=== PATIENT | female | born 1995 | race Caucasian/White ===

== ENCOUNTER 2017-01-26 23:08 | Emergency (ER) | payer OTHER ==
[2017-01-27] MEDS ORDERED: DOXYcycline CAP(*) 100 MG PO ONE (00:53)
[2017-01-27 01:47] VITALS: BP 109/77
--- NOTE | 2017-01-27 02:03 | ED ---
Lower Extremity - HPI Summary HPI Summary: Pt here w/ redness, swelling and drainage from Lt inner thigh. Started as a pink papule - nonpainful and denies trauma (ie. picking at the area, insect bite , etc). Just noticed tonight. Denies fever, chills, N/V/D, joint stiffness or pain w/ movement. H/o similar issue in another location. - History of Current Complaint Chief Complaint: EDRashSkinAbscess Stated Complaint: INFECTION ON LEFT INNER THIGH Time Seen by Provider: 01/27/17 00:24 Hx Obtained From: Patient Hx Last Menstrual Period: 17 November Pain Intensity: 0 Pain Scale Used: 0-10 Numeric - Allergies/Home Medications Allergies/Adverse Reactions: Allergies Allergy/AdvReac Type Severity Reaction Status Date / Time Vancomycin Allergy Rash And Verified 01/26/17 23:22 Itching PMH/Surg Hx/FS Hx/Imm Hx Previously Healthy: Yes Endocrine/Hematology History: Denies: Hx Diabetes, Autoimmune Disease Infectious Disease History: No Infectious Disease History: Reports: Hx Tuberculosis - vaccinated - pos PPD, x- rays are clear Denies: Traveled Outside the [place] in Last 30 Days - Social History Lives: With Family Alcohol Use: Occasionally Hx Substance Use: No Substance Use Type: Reports: None Hx Tobacco Use: No Smoking Status (MU): Never Smoked Tobacco Review of Systems Constitutional: Negative Negative: Chest Pain Negative: Shortness Of Breath Gastrointestinal: Negative Positive: no symptoms reported Musculoskeletal: Negative Skin: Other - see HPI Neurological: Negative Psychological: Normal All Other Systems Reviewed And Are Negative: Yes Physical Exam Triage Information Reviewed: Yes Vital Signs On Initial Exam: Initial Vitals Temp Pulse Resp BP Pulse Ox 99.1 F 92 16 132/75 97 01/26/17 23:15 01/26/17 23:15 01/26/17 23:15 01/26/17 23:15 01/26/17 23:15 Vital Signs Reviewed: Yes Appearance: Positive: Well-Appearing, No Pain Distress, Well-Nourished Skin: Positive: Warm - 5cm area of erythema over Lt inner thigh - central indurated area - no signs FB - scant serosanginous drainage - no pustule, no vesicles - warm to touch Head/Face: Positive: Normal Head/Face Inspection Eyes: Positive: Normal, EOMI ENT: Positive: Hearing grossly normal Respiratory/Lung Sounds: Positive: Breath Sounds Present Cardiovascular: Positive: Normal, Pulses are Symmetrical in both Upper and Lower Extremities. Negative: Leg Edema Left, Leg Edema Right Musculoskeletal: Positive: Normal, Strength/ROM Intact Neurological: Positive: Normal, Sensory/Motor Intact, Alert, Oriented to Person Place, Time Psychiatric: Positive: Normal - Carlito Coma Scale Coma Scale Total: 15 Diagnostics - Vital Signs Vital Signs Temp Pulse Resp BP Pulse Ox 01/27/17 01:45 97.8 F 90 16 109/77 01/27/17 00:15 98.6 F 80 16 131/73 98 01/26/17 23:15 99.1 F 92 16 132/75 97 - Laboratory Lab Statement: Any lab studies that have been ordered have been reviewed, and results considered in the medical decision making process. Lower Extremity Course/Dx - Course Course Of Treatment: Cx taken from site and sent to lab. Started on anbx and advised to f/u w/ PCP. Danger s/sx reviewed. Pt agrees w/ plan. - Diagnoses Provider Diagnoses: Abscess of left thigh, Cellulitis of left thigh Discharge - Discharge Plan Condition: Stable Disposition: HOME Prescriptions: DOXYcycline CAP(*) [DOXYcycline 100MG CAP(*)] 100 mg PO BID #19 cap Patient Education Materials: Cellulitis (ED) Forms: *School Release Referrals: [facility] [Primary Care Provider] - Additional Instructions: Wash daily with soap and water - rinse well and pat dry then redress with clean gauze You may apply warm compress as well as epsom salt compress Complete antibiotics - use alternative form of control (condoms) in addition to oral control as antibiotic can alter the efficacy Follow-up with PCP next week to review culture and tissue results in the event further care is needed You may take ibuprofen with food for pain *If you develop fever, chills, nausea, vomiting, chest pain, shortness of breath or spread of redness, return to ED
--- NOTE | 2017-01-31 10:18 | PN ---
Progress Note - Progress Note Date of Service: 01/27/17 Note: Cx grew peptoniphilus asaccharolyticus Appropriately treated with doxycycline Will await results of sensitivities. Nothing further at this time. Sameera Allen PA-C
== END 2017-01-27 01:47 | disposition home or self-care (01) ==
LOC: ED 23:08
DX: L02.416 Cutaneous abscess of left lower limb (principal); L03.116 Cellulitis of left lower limb; Z88.1 Allergy status to other antibiotic agents
CPT/HCPCS: 87070; 87076; 87205; 87640; 87641; 88305; 99282; A9270-GY